=== PATIENT | female | born 1985 | race African-American/Black ===

== ENCOUNTER 2020-01-23 20:35 | Inpatient (IN) | payer OTHER, SELFPAY ==
[2020-01-23] VITALS (8 sets, daily range): BP systolic 109–119; BP diastolic 47–73; PULSE 82–92; RESP 15–28; TEMP 37.3–39.6; O2SAT 100
--- NOTE | ~2020-01-23 | XR_ITS ---
XR chest 1V portable DATE: 01/23/2020 21:11 INDICATION: Shortness of breath, fever, chills TECHNIQUE: Portable upright AP chest on 01/23/2020 at 2109 hours COMPARISON: 04/29/2018 two-view chest and CT pulmonary scan FINDINGS: Normal heart size. No hilar or mediastinal enlargement. No pulmonary infiltrate or consolid ation, pleural effusion or pulmonary vascular congestion or pneumothorax. IMPRESSION: No active cardiopulmonary disease Reviewed, dictated and finalized at location A.
--- NOTE | ~2020-01-23 | US_ITS ---
EXAMINATION: US venous doppler [facility] DATE: 01/24/2020 07:50 INDICATION: Lower limb pain TECHNIQUE: Orr scale images without and with compression and Doppler images of the bilateral lower e xtremity veins were obtained. COMPARISON: 04/29/2018 FINDINGS: The right common femoral vein, profunda femoral vein, femoral vein, popliteal vein, peroneal trunk, p osterior tibial veins, and greater saphenous vein are patent. The left common femoral vein, profunda femoral vein, femoral vein, popliteal vein, peroneal trunk, po sterior tibial veins, and greater saphenous vein are patent. IMPRESSION: 1. Patent bilateral lower extremity veins. No evidence of deep venous thrombosis. Reviewed, dictated and finalized at location A. IMPRESSION: 1. Patent bilateral lower extremity veins. No evidence of deep venous thrombosi s.
--- NOTE | ~2020-01-23 | US_ITS ---
EXAMINATION: US retroperitoneal duplex ltd DATE: 01/26/2020 12:00 INDICATION: Pyelonephritis. Worsening renal insufficiency. TECHNIQUE: Multiple grayscale, color Doppler, and pulsed Doppler images of the kidneys and renal ekaterina polo were obtained. COMPARISON: None. FINDINGS: The aorta peak systolic velocity is 142 cm/s. The right renal artery peak systolic velocity is 149 cm /s in the proximal segment, 182 cm/s in the mid segment, and 168 cm/s in the distal segment. The left renal artery peak systolic velocity is 183 cm/s in the proximal segment, 142 cm/s in the mid segment , and 193 cm/s in the distal segment. Normal directional flow and venous waveforms are identified in the left and right renal veins. IMPRESSION: 1. No Doppler evidence of renal artery stenosis. 2. No evident renal vein thrombosis with normal directional flow and venous waveforms in the left and right renal veins. Reviewed, dictated and finalized at location A. IMPRESSION: 1. No Doppler evidence of renal artery stenosis. 2. No evident renal vein thrombosis with normal directional flow and venous wav eforms in the left and right renal veins.
--- NOTE | ~2020-01-23 | CT_ITS ---
EXAMINATION: CTA chest PE protocol DATE: 01/23/2020 22:42 INDICATION: Chest pain and cough TECHNIQUE: Computed tomography angiography (CTA) of the chest was performed with 100 mL Omnipaque-350 intravenous contrast timed to evaluate the pulmonary arteries. Coronal maximum intensity projection 3D-reconstructions were created by the technologist. The dose-length product (DLP) was 585.70 mGy-cm. Automated exposure control and iterative reconstruction technique were employed. COMPARISON: 04/29/2018 FINDINGS: The pulmonary arteries are well-opacified. There is an acute embolism in a subsegmental bra nch of the right lower lobe. There is mild atelectasis. No pleural effusion or pneumothorax is identi fied. No pathologically enlarged thoracic lymph nodes are identified. The heart size is normal. A 9 m m groundglass nodule of the right upper lobe is unchanged since the prior examination. Triangular sof t tissue density of the anterior mediastinum is consistent with residual thymus. IMPRESSION: 1. Subsegmental pulmonary embolism in the right lower lobe. These findings were discussed with Dr. Greg cooper in the Emergency Department at 2301 hours on 01/23/2020 by the [employer] Radiologist. Reviewed, dictated and finalized at location A. IMPRESSION: 1. Subsegmental pulmonary embolism in the right lower lobe. These findings were discussed with Dr. Bradshaw in the Emergency Department at 2301 hours on 01/23/20 20 by the [employer] Radiologist.
--- NOTE | ~2020-01-23 | US_ITS ---
EXAMINATION: US renal BI DATE: 01/26/2020 11:47 INDICATION: CVA tenderness, urinary tract infection TECHNIQUE: Multiple grayscale and Doppler ultrasound images of the kidneys were obtained. COMPARISON: None. FINDINGS: The right kidney measures 12.1 x 4.1 x 6.7 cm. The left kidney measures 10.4 x 7.0 x 7.1 cm . The kidneys demonstrate normal parenchymal echogenicity. There is no hydronephrosis. The bladder de monstrates mild wall thickening. IMPRESSION: 1. Normal kidneys without hydronephrosis. 2. Mild wall thickening of the bladder which could reflect incomplete distention or cystitis. Reviewed, dictated and finalized at location B. IMPRESSION: 1. Normal kidneys without hydronephrosis. 2. Mild wall thickening of the bladder which could reflect incomplete distentio n or cystitis.
--- NOTE | ~2020-01-23 | XR_ITS ---
EXAMINATION: XR finger 2nd RT min 2V INDICATION: Right second finger pain TECHNIQUE: Three views of the right second finger are obtained. COMPARISON: None available FINDINGS: There is mild dorsal soft tissue swelling of the finger overlying the distal phalanx. The b ones and joint spaces are normal. Bone alignment is maintained. IMPRESSION: 1. Mild soft tissue swelling of the distal finger without acute osseous abnormality. Reviewed, dictated and finalized at location B. IMPRESSION: 1. Mild soft tissue swelling of the distal finger without acute osseous abnorma lity.
--- NOTE | 2020-01-23 20:50 | ECG_ITS ---
Measurements Intervals [place] Rate: 91 P: MN: 0 QRS: 86 QRSD: 81 T: 40 QT: 370 QTc: 456 Interpretive Statements SINUS RHYTHM BORDERLINE ST ABNORMALITY- ANTEROLATERAL LEADS BASELINE ARTIFACT- I, II, III, AVF, V1 BORDERLINE ECG Electronically Signed On 01-24-2020 7:51:07 CDT by Saúl Schultz D.O.
[2020-01-23] MEDS: SODIUM CHLORIDE 0.9% IV 1,000 ML 999 ML IV CONT (21:00)
[2020-01-23] MEDS: KETOROLAC 30 MG/ML VIAL (*BKC) IV PUSH (21:10)
[2020-01-23 21:19] LABS: INR 1.1; Prothrombin Time 14.3 Seconds (11.1-14.7)
[2020-01-23 21:21] LABS: D Dimer 3.84 ug/mL (<0.48)
[2020-01-23 21:29] LABS: Troponin I < 0.012 ng/mL (0.000-0.034)
[2020-01-23 21:53] LABS: Basophils Percent Auto 0.4 % (0.2-1.2); Hematocrit 34.6 % (37.0-47.0); Immature Granulocyte Absolute 0.04 K/mm3 (0.00-0.031); Immature Granulocyte Percent A 0.4 % (0-0.5); Lymphocytes Percent Auto 9.8 % (18.3-44.2); Mean Corpuscular HGB Conc 34.7 g/dl (32-36); Mean Corpuscular Volume 89.4 fl (80-100); Mean Platelet Volume 12.2 fl (7.4-10.4); Monocytes Absolute Auto 0.6 K/mm3 (0.1-0.6); Monocytes Percent Auto 5.2 % (2.6-8.5); Neutrophils Absolute Auto 9.5 K/mm3 (1.3-6.7); Neutrophils Percent Auto 84.2 % (45.5-73.1); Platelet Count Result 147 k/mm3 (150-375); Red Blood Count 3.87 M/mm3 (4.2-5.4); Red Cell Distribution Width 12.6 % (11.5-14.5); White Blood Count 11.2 K/mm3 (4.5-10.0)
[2020-01-23 22:00] LABS: Anion Gap 9 mmol/L (8-16); Blood Urea Nitrogen 10 mg/dL (7-17); Carbon Dioxide 22 mmol/L (22-30); Chloride 104 mmol/L (98-107); Estimated Glomerular Filt Rate 58; Glucose 110 mg/dL (65-105); Potassium 3.1 mmol/L (3.4-5.0); Sodium 135 mmol/L (137-145)
--- NOTE | 2020-01-23 22:16 | ED.CHESTPAIN ---
HPI - Chest Pain General Chief Complaint: Chest Pain <Kalen Waller MD - Last Filed: 01/23/20 22:33> Stated Complaint: cp <Kalen Waller MD - Last Filed: 01/23/20 22:33> Time Seen by Provider: 01/23/20 20:37 <Kalen Waller MD - Last Filed: 01/23/20 22:33> Source: patient <Kalen Waller MD - Last Filed: 01/23/20 22:33> Mode of arrival: EMS <Kalen Waller MD - Last Filed: 01/23/20 22:33> Limitations: no limitations <Kalen Waller MD - Last Filed: 01/23/20 22:33> History of Present Illness HPI narrative: 34-year-old with a history of sickle cell trait, PE here with complaints of fever, chest pain not feeling well, hands and leg tingling and numb on and off for past 3 days. Patient states that she went to [facility] in [place] had cope with screen done yesterday with the pending results. She denies any cough, nausea or vomiting. Patient states that she not been taking warfarin for last 2 months and she lost her insurance card and she cannot afford to buy medication. She also states that she did not have money to buy medication for her fever. She <Kalen Waller MD - Last Filed: 01/23/20 22:33> MD complaint: chest pain and chest discomfort <aKlen Waller MD - Last Filed: 01/23/20 22:33> Pertinent past history: other (PE) <Kalen Waller MD - Last Filed: 01/23/20 22:33> Onset (ago): day(s) (3) <Kalen Waller MD - Last Filed: 01/23/20 22:33> Timing of current episode: constant <Kalen Waller MD - Last Filed: 01/23/20 22:33> Pain location: other (throught out the chest) <Kalen Wallre MD - Last Filed: 01/23/20 22:33> Pain radiation: right arm, left arm, back and neck <Kalen Waller MD - Last Filed: 01/23/20 22:33> Pain scale (0-10): 8 <Kalen Waller MD - Last Filed: 01/23/20 22:33> Quality: tightness and aching <Kalen Waller MD - Last Filed: 01/23/20 22:33> Relieving factors: nothing <Kalen Waller MD - Last Filed: 01/23/20 22:33> Exacerbating factors: nothing <Kalen Waller MD - Last Filed: 01/23/20 22:33> Treatment prior to arrival: aspirin <Kalen Waller MD - Last Filed: 01/23/20 22:33> Risk Factors Pulmonary embolism risk factors: clotting disorder <Kalen Waller MD - Last Filed: 01/23/20 22:33> Related Data On Oral Contraceptives: No <Kalen Waller MD - Last Filed: 01/23/20 22:33> Home Medications: Home Medications Medication Instructions Recorded Confirmed No Home Medications 01/23/20 01/23/20 <Kalen Waller MD - Last Filed: 01/23/20 22:33> Allergies/Adverse Reactions: Allergies Allergy/AdvReac Type Severity Reaction Status Date / Time No Known Allergies Allergy Mild Verified 01/23/20 21:08 <Kalen Waller MD - Last Filed: 01/23/20 22:33> Review of Systems Review of Systems: All systems reviewed & are unremarkable except as noted in HPI and below <Kalen Waller MD - Last Filed: 01/23/20 22:33> Constitutional: Constitutional: Reports no additional constitutional complaints <Kalen Waller MD - Last Filed: 01/23/20 22:33> Eyes: Eyes: Reports no additional eye complaints <Kalen Waller MD - Last Filed: 01/23/20 22:33> ENT: Reports as per HPI <Kalen Waller MD - Last Filed: 01/23/20 22:33> Cardiovascular: Cardiovascular: Reports no additional cardiovascular complaints <Kalen Waller MD - Last Filed: 01/23/20 22:33> Respiratory: Respiratory: Reports no additional respiratory complaints <Kalen Waller MD - Last Filed: 01/23/20 22:33> Gastrointestinal: Gastrointestinal: Reports no additional gastrointestinal complaints <Kalen Waller MD - Last Filed: 01/23/20 22:33> Musculoskeletal: Musculoskeletal: Reports no additional musculoskeletal complaints <Kalen Waller MD - Last Filed: 01/23/20 22:33> Neurologic: Reports as per HPI <Kalen Waller MD - Last Filed: 01/23/20 22:33> [facility] Past
[2020-01-23] MEDS: HEPARIN SODIUM 5,000 UNITS/ML VIAL 6000 UNITS IV PUSH (23:23)
[2020-01-24] VITALS (19 sets, daily range): BP systolic 86–110; BP diastolic 42–57; PULSE 94–114; RESP 16–20; TEMP 36.3–38.1; O2SAT 97–100; BMI 37.5; BMI 36.9
[2020-01-24 00:21] LABS: Add Urine Microscopic? YES; Appearance Urine Cloudy (Clear); Bacteria Urine 1+ /hpf; Bilirubin Urine Negative (Negative); Blood Urine 2+ (Negative); Color Urine Yellow (Yellow); Glucose Urine UA Negative (Negative); Ketones Urine Trace mg/dL (Negative); Leukocyte Esterase Ur 3+ LEU/UL (Negative); Mucus Urine Rare /lpf; Nitrate Urine Negative (Negative); Protein Urine 2+ mg/dL (Negative); RBC Urine 21-50 /hpf (0-2); Specific Grav Ur 1.012 (1.001-1.035); Squamous Epithelial Cell Urine Few /hpf (Few); WBC Clumps Urine Present /HPF; WBC Urine >75 /hpf
[2020-01-24] MEDS: HEPARIN SOD/D5W 100 UNITS/ML 25,000 UNITS/250 ML BAG 13 UNITS IV CONT ×2 (00:33→20:13)
--- NOTE | 2020-01-24 00:42 | PM.IMHP ---
H&P: HPI History of Present Illness Date/Time: 01/24/20 00:42 Chief complaint: chest pain, fever Narrative: Eloisa Dre Alvarez is a 34 year old female With a past medical history of DVTs, she IVC filter and multiple pulmonary embolisms who presented to the ER with chest pain. The patient was previously on Coumadin but could not afford her medications.The patient states that she became ill initially around the 3rd week in December. At that time she began having dysuria urinary frequency urgency with urinary dribbling. She went to a women's clinic and received prescription for 5 days of nitrofurantoin. Her urinary symptoms improved until about 3 days ago when her frequency urgency and dysuria returned. At that time she also began having fevers that were subjective. 2 days ago she began having pleuritic chest pain that wraps around from a front to the back similar to when she had prior pulmonary embolisms. She did not have any cough, congestion, rhinorrhea loss of taste or sense of smell. She went to an outside ER yesterday and was tested for COVID-19which came back negative.When she arrived to the ER her temperature was up to 103.2. She also reports bilateral CVA tenderness on examination. she also reports pain down her posterior left thigh up into her buttock as well as left leg swelling. She has also had some mild tenderness in her right calf. She does have an IVC filter in place that is been present for the last 3 or 4 years. She reports that the pain in her thigh is a deep ache. It does not get better with position changes. She has been having a mild generalized headache for the last couple of days. She has also been having episodes of chills. She has had decreased appetite for the last 3 days and nausea but no vomiting. She was prescribed ibuprofen from the outside ER. She sent the prescription with her friend to have filled in her friend never brought the prescription back to her. she also reports some mild pain to the left side of her cuticle on the left index finger. She reports a small amount of associated swelling. She thought it may be due to ingrown cuticle and tried to work on herself but was not able to remove any tissue and has not noticed any drainage. The finger is tender but non erythematous. She reports that her Medicaid ran out 2 months ago. She tried to her new her account online but they would not let her do so because of the concern for fraud. However, they were also not allowing people to go into the office at that time to renew their accounts due to COVID-19 restrictions. She reports that her dad of kidney failure in March. Since that time the patient has been working hard at diet and lifestyle modification. She has subsequently lost 80 lb. She does still snore but reports that she wakes feeling well rested. Prior to her weight loss she felt fatigued all the time. Review of Systems Review of Systems: Narrative: 12 systems were reviewed with pertinent positives and negatives per HPI. Except as documented in the HPI, all other systems were reviewed and are negative. [facility] Past Medical History Medical History (Updated 01/24/20 @ 04:24 by Evy Valle DO) DVT (deep venous thrombosis) Pulmonary embolism Sickle cell trait Family History Family History Father DVT (deep venous thrombosis) Hypertension Diabetes mellitus ESRD (end stage renal disease) Mar 2020 Mother Hypertension AAA (abdominal aortic aneurysm, ruptured) when the patient was 4 years old Social History Social History (Updated 01/24/20 @ 02:42 by Evy Valle DO) Smoking packs per day: 0.5 Smoking cigarettes per day: 10.0 Years smoked: 1 Smoking pack-years: 0.50 Smoking status: Former smoker Tobacco type: cigarettes Second hand tobacco smoke exposure: Yes Alcohol intake: current Drinks per week: 2 Alcohol use details:
--- NOTE | 2020-01-24 01:58 | PC.NURSE ---
This patient, Eloisa Alvarez, was admitted to IMU Room 211-01 on 01/24/20 at 0120. Patient/family oriented to hospital policies and general routines including ID bracelet, bed and alarms, visiting hours, pain management, procedures, bathroom and other care routines, personal items, smoking policy, room service/diet, and visiting hours. Valuables list has been completed. Information on how to activate the Rapid Response Team has been discussed. Patient/Family are encouraged to report perceived risks to care and to ask questions if they do not understand what they are told or what they should do.
[2020-01-24] MEDS: SODIUM CHLORIDE 0.9% IV 1,000 ML 150 ML IV CONT ×4 (02:55→20:12)
[2020-01-24] MEDS: ONDANSETRON INJ 4 MG/2 ML VIAL IV PUSH ×2 (03:50→18:47)
[2020-01-24 06:40] LABS: Basophils Absolute Auto 0.1 K/mm3 (0.0-0.1); Basophils Percent Auto 0.5 % (0.2-1.2); Hematocrit 36.4 % (37.0-47.0); Hemoglobin 12.4 g/dL (12.0-15.0); Immature Granulocyte Absolute 0.18 K/mm3 (0.00-0.031); Immature Granulocyte Percent A 1.4 % (0-0.5); Lymphocytes Absolute Auto 0.75 K/mm3 (0.9-3.2); Lymphocytes Percent Auto 5.6 % (18.3-44.2); Mean Corpuscular HGB Conc 34.1 g/dl (32-36); Mean Corpuscular Hemoglobin 30.8 pg (26-34); Mean Corpuscular Volume 90.5 fl (80-100); Mean Platelet Volume 11.7 fl (7.4-10.4); Monocytes Absolute Auto 0.6 K/mm3 (0.1-0.6); Monocytes Percent Auto 4.7 % (2.6-8.5); Neutrophils Absolute Auto 11.7 K/mm3 (1.3-6.7); Neutrophils Percent Auto 87.8 % (45.5-73.1); Platelet Count Result 155 k/mm3 (150-375); Red Blood Count 4.02 M/mm3 (4.2-5.4); Red Cell Distribution Width 12.6 % (11.5-14.5); White Blood Count 13.3 K/mm3 (4.5-10.0)
[2020-01-24 06:55] LABS: Anion Gap 8 mmol/L (8-16); Blood Urea Nitrogen 11 mg/dL (7-17); Calcium 7.7 mg/dL (8.4-10.2); Carbon Dioxide 25 mmol/L (22-30); Chloride 101 mmol/L (98-107); Estimated CRCL calculation 56 ml/min; Estimated Glomerular Filt Rate 49; Glucose 139 mg/dL (65-105); Potassium 3.4 mmol/L (3.4-5.0); Sodium 134 mmol/L (137-145); Uric Acid 4.4 mg/dL (2.5-7.5)
[2020-01-24 07:33] LABS: INR 1.3; Prothrombin Time 15.8 Seconds (11.1-14.7)
[2020-01-24 07:37] LABS: Partial Thromboplastin Time 75.2 SECONDS (22.3-36.8)
--- NOTE | 2020-01-24 09:53 | PM.IMPN ---
Progress Note: A&P Assessment and Plan (1) Sepsis: Code(s): A41.9 - Sepsis, unspecified organism Status: Acute Assessment and Plan: Due to UTI likely pyelonephritis given bilateral CVA tenderness. Supported by fever, tachycardia and leukocytosis in the setting of abnormal urinalysis. Patient remains tachycardic, had another episode of fever, and leukocytosis otherwise resting comfortably on room air with normal respiratory rate. Blood cultures and urine cultures pending. Continue monitoring patient's vitals in symptoms. (2) Pulmonary embolism: Code(s): I26.99 - Other pulmonary embolism without acute cor pulmonale Status: Acute Assessment and Plan: Patient's history of factor 5 Leiden with multiple episodes of DVTs/PEs in the past. She had a difficult time reinstating her medical insurance a few months ago and had to stop taking her Coumadin for the last 2 months. Now her medical insurance is back in place and she states she is able to pay for her medications again. She was found have a right lower lobe PE on arrival in started on IV heparin drip The patient's venous Doppler was negative for DVT Will discontinue IV heparin this evening and restart Coumadin 5 mg and Lovenox 100 mg q.12 Case management consult for assistance. She will continue on Coumadin upon discharge he will need to get a quote on how much Lovenox injections will be prior to discharge. Continue monitoring respiratory status. (3) UTI (urinary tract infection): Code(s): N39.0 - Urinary tract infection, site not specified Status: Acute Assessment and Plan: Patient has been having urinary symptoms for the last few weeks and was treated with Macrobid outpatient 2 weeks ago without any improvement of her symptoms. Now she is septic with UTI and possible pyelonephritis Empiric antibiotic therapy with Rocephin. Continue monitoring urinary symptoms. Await urine and blood cultures. (4) BETTYE (acute kidney injury): Code(s): N17.9 - Acute kidney failure, unspecified Status: Acute Assessment and Plan: Could be secondary to UTI, pyelonephritis, dehydration from sepsis, verses contrast causing worsening kidney irritation verses damage from possible infarctions of clotting disorder and off for anticoagulation She is on IV fluids at this time in creatinine increased from 1.3-1.5. Baseline labs from 2018 showed a normal creatinine 0.8. Will continue monitoring and if continues to be elevated or increasing will consider renal ultrasound verses CTA abdomen pelvis (5) Obesity (BMI 35.0-39.9 without comorbidity): Code(s): E66.9 - Obesity, unspecified Status: Acute Assessment and Plan: The patient has been working hard at changing her diet and exercise habits. I congratulated her on her 80 pound weight loss since March. (6) Finger pain, left: Code(s): M79.645 - Pain in left finger(s) Status: Acute Assessment and Plan: possibly due to early paronychia. Uric acid level was normal showing no signs of gout Patient is already on antibiotic therapy with Rocephin. Patient would benefit from the use of warm compresses. Time Spent With Patient Time with patient: 25 - 35 minutes Subjective Date/time seen: 01/24/20 09:53 Interval history: Date of service 01/24/2020: The patient reports continued fevers and chills but states it is improving. She is not been able to eat or drink too much because she is nauseous, denies vomiting. She does have some diffuse abdominal discomfort as well as flank pain bilaterally. She also reports chest pain with taking a deep breath to her r
[2020-01-24 14:59] LABS: Partial Thromboplastin Time 85.8 SECONDS (22.3-36.8)
[2020-01-24] MEDS: WARFARIN (*PBKC) 5 MG TABLET PO (16:16)
[2020-01-24] MEDS: SODIUM CHLORIDE 0.9% IV 500 ML IV CONT (19:33)
[2020-01-24] MEDS: ACETAMINOPHEN 325 MG TABLET 650 MG PO (20:18)
[2020-01-25] VITALS (17 sets, daily range): BP systolic 95–104; BP diastolic 49–65; PULSE 73–100; RESP 20; TEMP 35.7–37.7; O2SAT 98–100
--- NOTE | 2020-01-25 | ECHO_ITS ---
Patient Info Name: Eloisa Alvarez Age: 34 years : 1985 Gender: Female Ht: 65 in Wt: 219 lbs BSA: 2.18 m2 HR: 80 bpm BP: 98 / 57 mmHg Heart Rhythm: Sinus Rhythm Technical Quality: Good Exam Date: 01/25/2020 9:34 AM Exam Location: [facility] Patient Status: Inpatient Admit Date: 01/23/2020 Staff Ordering Physician: Alesia Mendez PA-C Program Project Manager: Álvaro Coon RDCS Attending Provider: Alesia Mendez PA-C Referring Physician: Vanessa HERRERA; Exam Type: CA echo doppler color flow Study Info Indications I26.99 - Other pulmonary embolism without acute cor pulmonale History/Risk Factors Pulmonary embolism. Summary 1. Left ventricular chamber dimension is normal. 2. Left ventricular systolic function is normal, estimated at 55-60%. 3. There is no increased left ventricular wall thickness. 4. The left ventricular diastolic function is normal. 5. Right ventricular chamber dimension is mildly enlarged. 6. 'D shaped' septum in systole consistent with RV pressure overload. 7. There is mild mitral valve regurgitation. 8. There is mild tricuspid valve regurgitation. 9. Mild pulmonary hypertension, estimated pulmonary arterial systolic pressure is 35 mmHg. Left Ventricle Left ventricular chamber dimension is normal. Left ventricular systolic function is normal, estimated at 55-60%. There is no increased left ventricular wall thickness. The left ventricular diastolic function is normal. Right Ventricle Right ventricular chamber dimension is mildly enlarged. Right ventricular systolic function is normal. 'D shaped' septum in systole consistent with RV pressure overload. Left Atria Left atrial chamber dimension is normal. Right Atria Right atrial chamber dimension is normal. Atrial Septum Intact interatrial septum visualized by color flow imaging. Aortic Valve The aortic valve is trileaflet. There is no aortic valve sclerosis. There is no aortic valve stenosis. There is trace aortic valve regurgitation. Pulmonic Valve The pulmonic valve is normal. There is no pulmonic valve stenosis. There is trace pulmonic regurgitation. Mitral Valve The mitral valve has normal leaflets. There is no mitral valve stenosis. There is mild mitral valve regurgitation. Tricuspid Valve The tricuspid valve leaflets are normal. There is no significant tricuspid valve stenosis. There is mild tricuspid valve regurgitation. Mild pulmonary hypertension, estimated pulmonary arterial systolic pressure is 35 mmHg. Pericardium/Pleural The pericardium appears normal. There is no pericardial effusion. Inferior Vena Cava Dilated inferior vena cava with <50% collapse upon inspiration consistent with elevated right atrial pressure, 15 mmHg. Aorta The aortic root size at the sinus of Valsalva is normal. The prox ascending aorta size is normal. Left Ventricular Outflow Tract Name Value Normal LVOT 2D LVOT Diameter 2.0 cm LVOT Doppler LVOT Peak Gradient 4 mmHg LVOT Mean Gradient 2 mmHg LVOT VTI
[2020-01-25] MEDS: ACETAMINOPHEN 325 MG TABLET 650 MG PO ×3 (04:09→18:39)
[2020-01-25] MEDS: SODIUM CHLORIDE 0.9% IV 1,000 ML 150 ML IV CONT ×3 (04:10→19:36)
[2020-01-25 04:51] LABS: Basophils Percent Auto 0.2 % (0.2-1.2); Hematocrit 29.2 % (37.0-47.0); Hemoglobin 9.9 g/dL (12.0-15.0); Immature Granulocyte Absolute 0.16 K/mm3 (0.00-0.031); Immature Granulocyte Percent A 1.2 % (0-0.5); Lymphocytes Absolute Auto 1.42 K/mm3 (0.9-3.2); Lymphocytes Percent Auto 11.1 % (18.3-44.2); Mean Corpuscular HGB Conc 33.9 g/dl (32-36); Mean Corpuscular Hemoglobin 30.5 pg (26-34); Mean Corpuscular Volume 89.8 fl (80-100); Mean Platelet Volume 11.9 fl (7.4-10.4); Monocytes Absolute Auto 1.2 K/mm3 (0.1-0.6); Neutrophils Absolute Auto 10.1 K/mm3 (1.3-6.7); Neutrophils Percent Auto 78.5 % (45.5-73.1); Platelet Count Result 154 k/mm3 (150-375); Red Blood Count 3.25 M/mm3 (4.2-5.4); Red Cell Distribution Width 12.9 % (11.5-14.5); White Blood Count 12.8 K/mm3 (4.5-10.0)
[2020-01-25 04:59] LABS: INR 1.2; Prothrombin Time 15.3 Seconds (11.1-14.7)
[2020-01-25 05:01] LABS: Partial Thromboplastin Time 87.9 SECONDS (22.3-36.8)
[2020-01-25 05:02] LABS: Anion Gap 5 mmol/L (8-16); Blood Urea Nitrogen 14 mg/dL (7-17); Calcium 6.7 mg/dL (8.4-10.2); Carbon Dioxide 23 mmol/L (22-30); Chloride 104 mmol/L (98-107); Estimated CRCL calculation 47 ml/min; Estimated Glomerular Filt Rate 40; Glucose 120 mg/dL (65-105); Sodium 132 mmol/L (137-145)
[2020-01-25 08:24] LABS: Hematocrit 29.9 % (37.0-47.0); Hemoglobin 10.1 g/dL (12.0-15.0)
[2020-01-25] MEDS: POTASSIUM CHLORIDE 20 MEQ TABLET 40 MEQ PO (09:16)
[2020-01-25] MEDS: ENOXAPARIN 100 MG/ML SYRINGE SUB-Q ×2 (09:16→19:36)
--- NOTE | 2020-01-25 10:19 | PM.IMPN ---
Progress Note: A&P Assessment and Plan (1) Sepsis: Code(s): A41.9 - Sepsis, unspecified organism Status: Acute Assessment and Plan: Due to UTI likely pyelonephritis given bilateral CVA tenderness. Supported by fever, tachycardia and leukocytosis in the setting of abnormal urinalysis. Last night the patient's blood pressure dropped showing worsening signs of sepsis. she was given IV fluid hydration and switched antibiotics from IV ceftriaxone to IV Zosyn for broader spectrum of coverage. Today she is feeling much better we will continue IV fluids, blood pressure is 100/60, non tachycardic, no fever since noon yesterday, normal respirations and oxygenation. Leukocytosis is improving this morning. Urine culture came back showing E coli growth, pending sensitivities. Blood cultures Still pending Continue monitoring patient's vitals in symptoms. (2) Pyelonephritis: Code(s): N12 - Tubulo-interstitial nephritis, not specified as acute or chronic Status: Acute Assessment and Plan: Patient has been having urinary symptoms for the last few weeks and was treated with Macrobid outpatient 2 weeks ago without any improvement of her symptoms. Now she is septic with UTI and possible pyelonephritis urine culture showing E coli, pending sensitivities. Due to worsening sepsis and dehydration last night she was given IV fluids and switched to IV Zosyn for a broader spectrum of antibiotics. Continue monitoring urinary symptoms. (3) Pulmonary embolism: Code(s): I26.99 - Other pulmonary embolism without acute cor pulmonale Status: Acute Assessment and Plan: Patient's history of factor 5 Leiden with multiple episodes of DVTs/PEs in the past. She had a difficult time reinstating her medical insurance a few months ago and had to stop taking her Coumadin for the last 2 months. Now her medical insurance is back in place and she states she is able to pay for her medications again. She was found have a right lower lobe PE on arrival in started on IV heparin drip The patient's venous Doppler was negative for DVT Will discontinue IV heparin this morning, started Coumadin 5 mg last night and Lovenox 100 mg q.12 Case management consult for assistance. She will continue on Coumadin upon discharge he will need to get a quote on how much Lovenox injections will be prior to discharge. Continue monitoring respiratory status. (4) BETTYE (acute kidney injury): Code(s): N17.9 - Acute kidney failure, unspecified Status: Acute Assessment and Plan: Could be secondary to UTI, pyelonephritis, dehydration from sepsis, verses contrast causing worsening kidney irritation verses damage from possible infarctions of clotting disorder and off for anticoagulation She is on IV fluids at this time. Creatinine increased from 1.5-1.8 overnight. will order a renal duplex ultrasound for further evaluation Baseline labs from 2018 showed a normal creatinine 0.8. Will continue monitoring and if continues to be elevated or increasing will consider renal ultrasound verses CTA abdomen pelvis (5) Anemia: Code(s): D64.9 - Anemia, unspecified Status: Acute Assessment and Plan: patient's anemia levels were normal on arrival and decreased this morning. no acute signs of bleeding at this time and most likely secondary to IV fluid dilution from dehydration IV heparin was discontinued and she was switched to Coumadin with bridging on Lovenox. will continue checking H&H daily. continue monitoring for causes of bleeding. Transfuse as needed. (6) Obesity (BMI 35.0-39.9 without comorbidity): Code(s): E66.9 - Obesity, unspecified Status: Acute
[2020-01-25] MEDS: ONDANSETRON INJ 4 MG/2 ML VIAL IV PUSH (13:54)
[2020-01-25] MEDS: PROMETHAZINE HCL 25 MG/ML AMPUL 12.5 MG IV PUSH (17:13)
[2020-01-25] MEDS: WARFARIN (*PBKC) 5 MG TABLET PO (17:19)
[2020-01-26] VITALS (9 sets, daily range): BP systolic 102–129; BP diastolic 49–80; PULSE 64–79; RESP 16–20; TEMP 36.6–37.6; O2SAT 98–100
[2020-01-26] MEDS: PROMETHAZINE HCL 25 MG/ML AMPUL 12.5 MG IV PUSH (00:03)
[2020-01-26] MEDS: ACETAMINOPHEN 325 MG TABLET 650 MG PO (00:03)
[2020-01-26] MEDS: SODIUM CHLORIDE 0.9% IV 1,000 ML 150 ML IV CONT ×2 (00:07→09:16)
[2020-01-26 05:29] LABS: Basophils Percent Auto 0.4 % (0.2-1.2); Eosinophils Percent Auto 0.4 % (0-4.4); Hematocrit 28.4 % (37.0-47.0); Hemoglobin 9.8 g/dL (12.0-15.0); Immature Granulocyte Absolute 0.09 K/mm3 (0.00-0.031); Immature Granulocyte Percent A 0.9 % (0-0.5); Lymphocytes Absolute Auto 2.54 K/mm3 (0.9-3.2); Lymphocytes Percent Auto 25.4 % (18.3-44.2); Mean Corpuscular HGB Conc 34.5 g/dl (32-36); Mean Corpuscular Hemoglobin 31.1 pg (26-34); Mean Corpuscular Volume 90.2 fl (80-100); Mean Platelet Volume 12.1 fl (7.4-10.4); Monocytes Absolute Auto 0.6 K/mm3 (0.1-0.6); Monocytes Percent Auto 6.4 % (2.6-8.5); Neutrophils Absolute Auto 6.7 K/mm3 (1.3-6.7); Neutrophils Percent Auto 66.5 % (45.5-73.1); Platelet Count Result 168 k/mm3 (150-375); Red Blood Count 3.15 M/mm3 (4.2-5.4); Red Cell Distribution Width 13.2 % (11.5-14.5)
[2020-01-26 05:33] LABS: INR 1.3; Prothrombin Time 15.4 Seconds (11.1-14.7)
[2020-01-26 05:42] LABS: Albumin Level 2.5 g/dL (3.5-5.1); Anion Gap 5 mmol/L (8-16); Blood Urea Nitrogen 10 mg/dL (7-17); Carbon Dioxide 21 mmol/L (22-30); Chloride 110 mmol/L (98-107); Estimated CRCL calculation 60 ml/min; Estimated Glomerular Filt Rate 53; Glucose 91 mg/dL (65-105); Phosphorus 2.4 mg/dL (2.5-4.5); Sodium 136 mmol/L (137-145)
[2020-01-26] MEDS: ENOXAPARIN 100 MG/ML SYRINGE SUB-Q (08:01)
--- NOTE | 2020-01-26 10:28 | PM.IMPN ---
Progress Note: A&P Assessment and Plan (1) Sepsis: Code(s): A41.9 - Sepsis, unspecified organism Status: Acute Assessment and Plan: Due to UTI with suspected pyelonephritis given bilateral CVA tenderness. Supported by fever, tachycardia and leukocytosis in the setting of abnormal urinalysis. Tachycardia, fever, and leukocytosis resolved. Urine culture came back showing E coli growth, sensitive to Rocephin. Blood cultures NGTD x 2 Continue monitoring patient's vitals in symptoms. Continue treatment for suspected pyelonephritis; see below (2) Pyelonephritis: Code(s): N12 - Tubulo-interstitial nephritis, not specified as acute or chronic Status: Acute Assessment and Plan: Patient has been having urinary symptoms for the last few weeks and was treated with Macrobid outpatient 2 weeks ago without any improvement of her symptoms. She presented with sepsis with UTI/suspected pyelonephritis. UCx growing E. coli sensitive to Rocephin Will Switch to Rocephin today Continue IV antibiotic therapy Monitor for improvement (3) Pulmonary embolism: Code(s): I26.99 - Other pulmonary embolism without acute cor pulmonale Status: Acute Assessment and Plan: PE as evident on CTA of the chest. Patient's history of factor 5 Leiden with multiple episodes of DVTs/PEs in the past. She had a difficult time reinstating her medical insurance a few months ago and had to stop taking her Coumadin for the last 2 months. Now her medical insurance is back in place and she states she is able to pay for her medications again. CC following and attempting to hurd Eliquis. INR 1.3 today, subtherapeutic Continue Coumadin at 5 mg with therapeutic Lovenox bridge therapy Case management consult for assistance. She will continue on Coumadin upon discharge he will need to get a quote on how much Lovenox injections will be prior to discharge. Continue monitoring respiratory status. (4) BETTYE (acute kidney injury): Code(s): N17.9 - Acute kidney failure, unspecified Status: Acute Assessment and Plan: Could be secondary to UTI, pyelonephritis, dehydration from sepsis, verses contrast causing worsening kidney irritation verses damage from possible infarctions of clotting disorder and off for anticoagulation. Renal duplex and b/l US awaiting to be performed. Cr 1.4 today; improved. Baseline appears to be about 0.8 on review of labs Continue IVF for now Await Renal duplex/US results Consider Nephrology consult (5) Anemia: Code(s): D64.9 - Anemia, unspecified Status: Acute Assessment and Plan: patient's anemia levels were normal on arrival; stable Hgb at 9.8 today. Patient reporting purple urine, concerned for gross hematuria. Continue a/c therapy for PE with coumadine and Lovenox bridge therapy Monitor H&H this afternoon Consider Heme consult if anemia worsens Transfuse PRN (6) Obesity (BMI 35.0-39.9 without comorbidity): Code(s): E66.9 - Obesity, unspecified Status: Acute Assessment and Plan: The patient has been working hard at changing her diet and exercise habits and has lost signficant weight in the past several months (7) Finger pain, left: Code(s): M79.645 - Pain in left finger(s) Status: Acute Assessment and Plan: possibly due to early paronychia. Finger is not warm to touch and no drainage noted; mild erythema. Uric acid level was normal; gout less likely Patient is already on antibiotic therapy with Rocephin. Patient would benefit from the use of warm compresses. Subjective Date/time seen: 09
[2020-01-26] MEDS: POTASSIUM CHLORIDE 20 MEQ TABLET 60 MEQ PO (11:46)
[2020-01-26 12:21] LABS: Hematocrit 29.3 % (37.0-47.0); Hemoglobin 10.1 g/dL (12.0-15.0)
--- NOTE | 2020-01-26 14:33 | PC.NURSE ---
This patient, Eloisa Alvarez, was transferred to [facility] on 01/26/20 at 1433. Personal belongings sent with patient. Report given to JULIÁN Lu. Appropriate documentation sent with patient.
[2020-01-26] MEDS: ONDANSETRON INJ 4 MG/2 ML VIAL IV PUSH (20:19)
[2020-01-26] MEDS: APIXABAN 5 MG TABLET 10 MG PO (20:20)
[2020-01-26] MEDS: SODIUM CHLORIDE 0.9% IV 1,000 ML 100 ML IV CONT (20:21)
[2020-01-27 05:33] LABS: Basophils Percent Auto 0.3 % (0.2-1.2); Eosinophils Absolute Auto 0.1 K/mm3 (0-0.3); Eosinophils Percent Auto 1.3 % (0-4.4); Hematocrit 29.1 % (37.0-47.0); Hemoglobin 9.8 g/dL (12.0-15.0); Immature Granulocyte Absolute 0.09 K/mm3 (0.00-0.031); Immature Granulocyte Percent A 1.3 % (0-0.5); Lymphocytes Absolute Auto 2.49 K/mm3 (0.9-3.2); Lymphocytes Percent Auto 35.4 % (18.3-44.2); Mean Corpuscular HGB Conc 33.7 g/dl (32-36); Mean Corpuscular Hemoglobin 30.5 pg (26-34); Mean Corpuscular Volume 90.7 fl (80-100); Mean Platelet Volume 11.4 fl (7.4-10.4); Monocytes Absolute Auto 0.5 K/mm3 (0.1-0.6); Monocytes Percent Auto 7.4 % (2.6-8.5); Neutrophils Absolute Auto 3.8 K/mm3 (1.3-6.7); Neutrophils Percent Auto 54.3 % (45.5-73.1); Platelet Count Result 204 k/mm3 (150-375); Red Blood Count 3.21 M/mm3 (4.2-5.4); Red Cell Distribution Width 13.5 % (11.5-14.5)
[2020-01-27 05:39] LABS: INR 1.4; Prothrombin Time 16.9 Seconds (11.1-14.7)
[2020-01-27 05:51] LABS: Albumin Level 2.6 g/dL (3.5-5.1); Anion Gap 3 mmol/L (8-16); Blood Urea Nitrogen 6 mg/dL (7-17); Calcium 7.5 mg/dL (8.4-10.2); Carbon Dioxide 23 mmol/L (22-30); Chloride 110 mmol/L (98-107); Estimated CRCL calculation 70 ml/min; Estimated Glomerular Filt Rate > 60; Glucose 96 mg/dL (65-105); Magnesium 2.1 mg/dL (1.6-2.3); Phosphorus 2.3 mg/dL (2.5-4.5); Potassium 3.4 mmol/L (3.4-5.0); Sodium 136 mmol/L (137-145)
[2020-01-27 06:19] VITALS: BP 134/85; PULSE 74; RESP 18; TEMP 37.2; O2SAT 100
[2020-01-27] MEDS: SODIUM CHLORIDE 0.9% IV 1,000 ML 100 ML IV CONT (06:26)
[2020-01-27 08:00] VITALS: PULSE 74; RESP 18; O2SAT 100
[2020-01-27] MEDS: ONDANSETRON INJ 4 MG/2 ML VIAL IV PUSH (08:45)
[2020-01-27] MEDS: POTASSIUM CHLORIDE 20 MEQ TABLET 40 MEQ PO (08:45)
[2020-01-27] MEDS: APIXABAN 5 MG TABLET 10 MG PO ×2 (08:47→20:32)
[2020-01-27 14:27] VITALS: BP 112/63; PULSE 68; RESP 18; TEMP 36.3; O2SAT 98
--- NOTE | 2020-01-27 16:00 | PM.IMPN ---
Progress Note: A&P Assessment and Plan (1) Sepsis: Code(s): A41.9 - Sepsis, unspecified organism Status: Acute Assessment and Plan: Due to UTI/cystitis given Renal US results. Supported by fever, tachycardia and leukocytosis in the setting of abnormal urinalysis. Tachycardia, fever, and leukocytosis resolved. Urine culture came back showing E coli growth, sensitive to Rocephin. Blood cultures NGTD x 2 Continue monitoring patient's vitals in symptoms. Continue treatment for suspected UTI/cystitis; see below (2) Acute cystitis with hematuria: Code(s): N30.01 - Acute cystitis with hematuria Status: Acute Assessment and Plan: Patient has been having urinary symptoms for the last few weeks and was treated with Macrobid outpatient 2 weeks ago without any improvement of her symptoms. She presented with sepsis with UTI. UCx growing E. coli sensitive to Rocephin Continue IV rocephin for now; will likely discharge on cefdinir at discharge to complete 7-10 days antibiotics total Monitor for improvement (3) Pulmonary embolism: Code(s): I26.99 - Other pulmonary embolism without acute cor pulmonale Status: Acute Assessment and Plan: PE as evident on CTA of the chest. Patient's history of factor 5 Leiden with multiple episodes of DVTs/PEs in the past. CC following and patient is able to have Eliquis with approved insurance auth; this was started yesterday evening with coumadin/lovenox bridge d/c at that time Continue Eliquis 10 mg BID for 7 days; 5mg BID thereafter Follow up with PCP as an outpatient Continue monitoring respiratory status. (4) BETTYE (acute kidney injury): Code(s): N17.9 - Acute kidney failure, unspecified Status: Acute Assessment and Plan: Could be secondary to UTI, pyelonephritis, dehydration from sepsis, verses contrast causing worsening kidney irritation verses damage from possible infarctions of clotting disorder and off for anticoagulation. Renal duplex unremarkable for ISAIAH or renal vein thrombosis. Cr 1.2 today; improved. Baseline appears to be about 0.8 on review of labs Continue IVF for now Consider Nephrology consult (5) Anemia: Code(s): D64.9 - Anemia, unspecified Status: Acute Assessment and Plan: patient's anemia levels were normal on arrival; stable Hgb at 9.8 today. Patient reporting tea colored urine Continue Eliquis for treatment of PE Monitor H&H tomorrow Consider Heme consult if anemia worsens Transfuse PRN (6) Obesity (BMI 35.0-39.9 without comorbidity): Code(s): E66.9 - Obesity, unspecified Status: Acute Assessment and Plan: The patient has been working hard at changing her diet and exercise habits and has lost signficant weight in the past several months (7) Finger pain, left: Code(s): M79.645 - Pain in left finger(s) Status: Acute Assessment and Plan: possibly due to early paronychia. Finger is not warm to touch and no drainage noted; mild erythema. Uric acid level was normal; gout less likely Patient is already on antibiotic therapy with Rocephin. Patient would benefit from the use of warm compresses. Subjective Date/time seen: 01/27/20 16:00 Interval history: Patient is a 34 yo F with history of DVTs, IVC filter placement and multiple pulmonary embolisms who is here for treatment of UTI (suspected pyelonephritis), and PE. Patient states she is still in pain in her lower back and is nauseous occasionally, but notes that this has improved since she first came in. Pain usually is associated with her urination. No vomiting for
[2020-01-27] MEDS: SACCHAROMYCES BOULARDII 250 MG CAPSULE PO (16:13)
[2020-01-27] MEDS: SODIUM CHLORIDE 0.9% IV 1,000 ML 75 ML IV CONT (17:43)
[2020-01-27 20:05] VITALS: BP 104/52; PULSE 65; RESP 18; TEMP 37.6; O2SAT 100
[2020-01-28 05:59] LABS: Basophils Percent Auto 0.5 % (0.2-1.2); Eosinophils Absolute Auto 0.2 K/mm3 (0-0.3); Eosinophils Percent Auto 2.7 % (0-4.4); Hematocrit 27.4 % (37.0-47.0); Hemoglobin 9.3 g/dL (12.0-15.0); Immature Granulocyte Absolute 0.09 K/mm3 (0.00-0.031); Immature Granulocyte Percent A 1.4 % (0-0.5); Lymphocytes Absolute Auto 2.95 K/mm3 (0.9-3.2); Lymphocytes Percent Auto 46.2 % (18.3-44.2); Mean Corpuscular HGB Conc 33.9 g/dl (32-36); Mean Corpuscular Hemoglobin 30.5 pg (26-34); Mean Corpuscular Volume 89.8 fl (80-100); Mean Platelet Volume 11.1 fl (7.4-10.4); Monocytes Absolute Auto 0.5 K/mm3 (0.1-0.6); Monocytes Percent Auto 7.7 % (2.6-8.5); Neutrophils Absolute Auto 2.7 K/mm3 (1.3-6.7); Neutrophils Percent Auto 41.5 % (45.5-73.1); Platelet Count Result 224 k/mm3 (150-375); Red Blood Count 3.05 M/mm3 (4.2-5.4); Red Cell Distribution Width 13.4 % (11.5-14.5); White Blood Count 6.4 K/mm3 (4.5-10.0)
[2020-01-28 06:09] LABS: Anion Gap 3 mmol/L (8-16); Blood Urea Nitrogen 3 mg/dL (7-17); Calcium 7.6 mg/dL (8.4-10.2); Carbon Dioxide 23 mmol/L (22-30); Chloride 110 mmol/L (98-107); Estimated CRCL calculation 89 ml/min; Estimated Glomerular Filt Rate > 60; Glucose 94 mg/dL (65-105); Magnesium 1.9 mg/dL (1.6-2.3); Potassium 3.3 mmol/L (3.4-5.0); Sodium 136 mmol/L (137-145)
[2020-01-28] MEDS: SODIUM CHLORIDE 0.9% IV 1,000 ML 75 ML IV CONT (06:24)
[2020-01-28] MEDS: SACCHAROMYCES BOULARDII 250 MG CAPSULE PO ×3 (08:12→16:13)
[2020-01-28] MEDS: POTASSIUM CHLORIDE 20 MEQ TABLET 60 MEQ PO (08:12)
[2020-01-28 08:13] VITALS: RESP 18; O2SAT 98
[2020-01-28] MEDS: APIXABAN 5 MG TABLET 10 MG PO ×2 (08:13→16:14)
--- NOTE | 2020-01-28 11:54 | PM.IMPN ---
Progress Note: A&P Assessment and Plan (1) Sepsis: Code(s): A41.9 - Sepsis, unspecified organism Status: Acute Assessment and Plan: Due to UTI/cystitis given renal US results. Supported by fever, tachycardia and leukocytosis in the setting of abnormal urinalysis. Tachycardia, fever, and leukocytosis resolved. Urine culture came back showing E coli growth, sensitive to Rocephin. Blood cultures NGTD x 2 Continue monitoring patient's vitals in symptoms. Continue treatment for suspected UTI/cystitis; see below (2) Acute cystitis with hematuria: Code(s): N30.01 - Acute cystitis with hematuria Status: Acute Assessment and Plan: Patient has been having urinary symptoms for the last few weeks and was treated with Macrobid outpatient 2 weeks ago without any improvement of her symptoms. She presented with sepsis with UTI. UCx growing E. coli sensitive to Rocephin Continue IV rocephin for now; will likely discharge on cefdinir at discharge to complete 7-10 days antibiotics total Monitor for improvement (3) Pulmonary embolism: Code(s): I26.99 - Other pulmonary embolism without acute cor pulmonale Status: Acute Assessment and Plan: PE as evident on CTA of the chest. Patient's history of factor 5 Leiden with multiple episodes of DVTs/PEs in the past. CC following and patient is able to have Eliquis with approved insurance auth. Coumadin/lovenox bridge prior to Eliquis therapy during stay. Continue Eliquis 10 mg BID for 7 days (finish am of 02/01); 5mg BID thereafter Follow up with PCP as an outpatient Continue monitoring respiratory status. (4) BETTYE (acute kidney injury): Code(s): N17.9 - Acute kidney failure, unspecified Status: Resolved Assessment and Plan: Could be secondary to UTI, pyelonephritis, dehydration from sepsis, verses contrast causing worsening kidney irritation verses damage from possible infarctions of clotting disorder and off for anticoagulation. Renal duplex unremarkable for ISAIAH or renal vein thrombosis. Cr 1.00 today; improved. Baseline appears to be about 0.8 on review of labs Stop IVF (5) Anemia: Code(s): D64.9 - Anemia, unspecified Status: Acute Assessment and Plan: patient's anemia levels were normal on arrival; stable Hgb at 9.3 today. Patient reporting tea colored urine, although upon inspection of urine, this appears to have improved all still dark in color Continue Eliquis for treatment of PE Monitor H&H this afternoon; if stable, will consider discharge today Transfuse PRN (6) Obesity (BMI 35.0-39.9 without comorbidity): Code(s): E66.9 - Obesity, unspecified Status: Acute Assessment and Plan: The patient has been working hard at changing her diet and exercise habits and has lost signficant weight in the past several months (7) Finger pain, left: Code(s): M79.645 - Pain in left finger(s) Status: Acute Assessment and Plan: possibly due to early paronychia. Finger is not warm to touch and no drainage noted although is more swollen today. Painful to touch. Uric acid level was normal; gout less likely Patient is already on antibiotic therapy with Rocephin. Patient would benefit from the use of warm compresses. Will do Xray of finger; will await results before discharge Likely will need follow up with PCP Subjective Date/time seen: 01/28/20 11:54 Interval history: Patient is a 34 yo F with history of DVTs, IVC filter placement and multiple pulmonary embolisms who is here for treatment of UTI (suspected pyelonephritis), and PE. Patient states
[2020-01-28 13:24] LABS: Hematocrit 29.8 % (37.0-47.0); Hemoglobin 10.1 g/dL (12.0-15.0)
[2020-01-28 13:37] LABS: Anion Gap 4 mmol/L (8-16); Blood Urea Nitrogen 4 mg/dL (7-17); Calcium 7.9 mg/dL (8.4-10.2); Carbon Dioxide 23 mmol/L (22-30); Chloride 111 mmol/L (98-107); Estimated CRCL calculation 89 ml/min; Estimated Glomerular Filt Rate > 60; Glucose 95 mg/dL (65-105); Potassium 3.7 mmol/L (3.4-5.0); Sodium 138 mmol/L (137-145)
[2020-01-28 14:00] VITALS: BP 117/64; PULSE 65; RESP 22; O2SAT 100
--- NOTE | 2020-01-28 14:27 | PC.NURSE ---
On 01/28/20, the student, [Laila Davis ], provided care and completed [facility] documentation on this patient. I have reviewed the student's documentation and agree with the findings.
--- NOTE | 2020-01-28 15:55 | PM.DS ---
DS: Admitting Diagnosis Admitting Diagnosis Admitting Diagnosis: chest pain, fever DS: Discharge Diagnosis Discharge Diagnosis (1) Sepsis: Code(s): A41.9 - Sepsis, unspecified organism Status: Acute Assessment and Plan: Due to UTI/cystitis given renal US results. Supported by fever, tachycardia and leukocytosis in the setting of abnormal urinalysis. Tachycardia, fever, and leukocytosis resolved. Urine culture came back showing E coli growth, sensitive to Rocephin. Blood cultures NGTD x 2. Clinical improvement since admission. Continue monitoring patient's vitals in symptoms. Continue treatment for suspected UTI/cystitis; see below (2) Acute cystitis with hematuria: Code(s): N30.01 - Acute cystitis with hematuria Status: Acute Assessment and Plan: Patient has been having urinary symptoms for the last few weeks and was treated with Macrobid outpatient 2 weeks ago without any improvement of her symptoms. She presented with sepsis with UTI. UCx growing E. coli sensitive to Rocephin Will discharge on cefdinir at discharge to complete 14 days antibiotics total given her slow clinical improvement Monitor for improvement (3) Pulmonary embolism: Code(s): I26.99 - Other pulmonary embolism without acute cor pulmonale Status: Acute Assessment and Plan: PE as evident on CTA of the chest. Patient's history of factor 5 Leiden with multiple episodes of DVTs/PEs in the past. CC following and patient is able to have Eliquis with approved insurance auth. Coumadin/lovenox bridge prior to Eliquis therapy during stay. Continue Eliquis 10 mg BID for 7 days (finish am of 02/01); 5 mg BID thereafter Follow up with PCP as an outpatient (4) BETTYE (acute kidney injury): Code(s): N17.9 - Acute kidney failure, unspecified Status: Resolved Assessment and Plan: Could be secondary to UTI, pyelonephritis, dehydration from sepsis, verses contrast causing worsening kidney irritation verses damage from possible infarctions of clotting disorder and off for anticoagulation. Renal duplex unremarkable for ISAIAH or renal vein thrombosis. Cr 1.00 today; improved. Baseline appears to be about 0.8 on review of labs Stop IVF (5) Anemia: Code(s): D64.9 - Anemia, unspecified Status: Acute Assessment and Plan: patient's anemia levels were normal on arrival; stable Hgb at 9.3 this morning, but 10.1 this afternoon. Patient reporting tea colored urine, although upon inspection of urine, this appears to have improved although still somewhat dark in color Continue Eliquis for treatment of PE (6) Obesity (BMI 35.0-39.9 without comorbidity): Code(s): E66.9 - Obesity, unspecified Status: Acute Assessment and Plan: The patient has been working hard at changing her diet and exercise habits and has lost signficant weight in the past several months (7) Finger pain, left: Code(s): M79.645 - Pain in left finger(s) Status: Acute Assessment and Plan: possibly due to early paronychia. Finger is not warm to touch and no drainage noted although is more swollen today. Painful to touch. Uric acid level was normal; gout less likely. Right 2nd finger xray shows mild soft tissue swelling Patient is already on antibiotic therapy for UTI Patient would benefit from the use of warm compresses; encouraged this at discharge F/u with PCP DS: Summary Hospital Course Reason for hospitalization: Sepsis, UTI (cystitis with hematuria) Hospital Course: Patient is a 34 yo F with sickle cell trait, reported factor V leiden, history of previous VTE
[2020-01-28] MEDS: ACETAMINOPHEN 325 MG TABLET 650 MG PO (16:26)
== END 2020-01-28 17:20 | disposition home or self-care (01) | DRG 720 ==
LOC: ANHED 01-24 00:42 → ANHIMU 01-24 00:56 → ANH3MED 01-27 08:45 → ANHIMU 02-01 14:55
PROVIDERS: Family Medicine; Physician Assistant; Admitting Provider Internal Medicine; Emergency Provider Emergency Medicine; Visit Provider Physician Assistant
DX: A41.9 Sepsis, unspecified organism (principal); I26.99 Other pulmonary embolism without acute cor pulmonale; N30.01 Acute cystitis with hematuria; B96.20 Unspecified Escherichia coli [E. coli] as the cause of diseases classified elsewhere; D57.3 Sickle-cell trait; E66.9 Obesity, unspecified; M79.645 Pain in left finger(s); N17.9 Acute kidney failure, unspecified; E86.0 Dehydration; D68.51 Activated protein C resistance; D64.9 Anemia, unspecified; Z86.711 Personal history of pulmonary embolism; Z86.718 Personal history of other venous thrombosis and embolism; Z87.891 Personal history of nicotine dependence; Z95.828 Presence of other vascular implants and grafts
CPT/HCPCS: 36415; 71045; 71275; 73140; 76775; 80048; 80069; 81001; 81025; 83735; 84484; 84550; 85014; 85018; 85025; 85380; 85610; 85730; 87040; 87077; 87086; 87088; 87186; 93005; 93306; 93970; 93976; 96361; 96365; 96366; 96367; 96372; 96375; 96376; 99285; A9270; G0378; G0379; J0131; J0696; J1644; J1650; J1885; J2405; J2543; J2550; J7030; J7040; Q9967